=== PATIENT | female | born 1985 | race American Indian/Alaskan Native ===

== ENCOUNTER 2017-07-09 11:22 | Emergency (ER) | payer MEDICAID, OTHER ==
[2017-07-09 11:22] VITALS: BMI 35.4
[2017-07-09 11:40] VITALS: RESP 18; TEMP 98.8
[2017-07-09] MEDS ORDERED: Sodium Chloride 0.9% 1,000 ML IV STA (12:15)
[2017-07-09] MEDS ORDERED: Sodium Chloride 0.9% 1,000 ML ONE (13:09)
[2017-07-09 13:13] LABS: BASO % 0.1 % (0.0-2.0); EOS # 0.1 K/uL (0.0-0.7); HEMATOCRIT 35.4 % (34.0-47.0); LYMPH # 1.6 K/uL (1.0-4.3); LYMPH % 31.9 % (20.0-40.0); MEAN CELL VOLUME 89.9 fL (81.0-99.0); MEAN CORPUSCULAR HEMOGLOBIN 29.6 pg (27.0-31.0); MEAN CORPUSCULAR HGB CONC 32.9 g/dL (33.0-37.0); MEAN PLATELET VOLUME 10.5 fL (7.2-11.7); MONO # 0.3 K/uL (0.0-0.8); MONO % 6.4 % (0.0-10.0); RED CELL DISTRIBUTION WIDTH 12.8 % (11.5-14.5); WHITE BLOOD COUNT 5.2 K/uL (4.8-10.8)
[2017-07-09 13:15] LABS: CHLORIDE 100 mmol/L (98-107)
[2017-07-09 13:16] LABS: POTASSIUM 3.6 mmol/L (3.6-5.2); SODIUM 137 mmol/L (132-148)
[2017-07-09 13:18] LABS: ALKALINE PHOSPHATASE 57 U/L (38-126); ALT/SGPT 25 U/L (9-52); AST/SGOT 22 U/L (14-36); BILIRUBIN,TOTAL 0.7 mg/dL (0.2-1.3); BLOOD UREA NITROGEN 7 mg/dL (7-17); CARBON DIOXIDE 26 mmol/L (22-30); GFR AFRICAN-AMERICAN > 60; GLUCOSE,RANDOM 73 mg/dL (65-105); TOTAL PROTEIN 7.8 g/dL (6.3-8.3)
[2017-07-09 13:19] LABS: CALCIUM 9.1 mg/dl (8.6-10.4)
--- NOTE | 2017-07-09 13:39 | C.PDOC ---
History Of Present Illness 32 y/o female 7 weeks presents to ED with complaints of pelvic pain worse on left side and vaginal spotting since yesterday. Patient denies fever, chills, nausea, vomiting, dysuria or any other complaints at this time. Time Seen by Provider: 07/09/17 11:52 Chief Complaint (Nursing): Abdominal Pain History Per: Patient History/Exam Limitations: no limitations Onset/Duration Of Symptoms: Days Current Symptoms Are (Timing): Still Present Past Medical History Reviewed: Historical Data, Nursing Documentation, Vital Signs Vital Signs: Last Vital Signs Temp 98.8 F 07/09/17 11:38 Pulse 74 07/09/17 14:57 Resp 18 07/09/17 14:57 BP 102/64 07/09/17 14:57 Pulse Ox 100 07/09/17 16:01 - Medical History PMH: Asthma Family History: States: Unknown Family Hx - Social History Hx Alcohol Use: Yes Hx Substance Use: No - Immunization History Hx Tetanus Toxoid Vaccination: No Hx Influenza Vaccination: No Hx Pneumococcal Vaccination: No Review Of Systems Except As Marked, All Systems Reviewed And Found Negative. Constitutional: Negative for: Fever, Chills Gastrointestinal: Negative for: Nausea, Vomiting, Diarrhea Genitourinary: Positive for: Vaginal Bleeding, Pelvic Pain. Negative for: Dysuria, Frequency Musculoskeletal: Negative for: Back Pain Skin: Negative for: Rash Physical Exam - Physical Exam Appears: Non-toxic, No Acute Distress Skin: Normal Color, Warm, Dry, No Rash Head: Atraumatic, Normacephalic Eye(s): bilateral: Normal Inspection, EOMI Oral Mucosa: Moist Neck: Normal ROM, Supple Chest: Symmetrical Cardiovascular: Rhythm Regular Respiratory: Normal Breath Sounds, No Rales, No Rhonchi, No Wheezing Gastrointestinal/Abdominal: Soft, Tenderness (Mild to left suprapubic area), No Guarding, No Rebound Extremity: Normal ROM Neurological/Psych: Oriented x3 ED Course And Treatment - Laboratory Results Result Diagrams: 07/09/17 12:58 07/09/17 12:58 O2 Sat by Pulse Oximetry: 100 (RA) Pulse Ox Interpretation: Normal - CT Scan/US pelvic US Other Rad Studies (CT/US): Read By Radiologist, Radiology Report Reviewed CT/US Interpretation: Accession No. : [id number]. Patient Name / ID : TRAMAINE STOCK / [id number]. Exam Date : 07/09/2017 13:25:31 ( Approved ). Study Comment : Sex / Age : F / 32Y. Creator : NEW RAMSEY MD. Dictator : NEW RAMSEY MD. Interactive Media Marketing Director : Head Control Clerk : NEW RAMSEY MD. Approver2 : Report Date : 07/09/2017 14:08:25. My Comment : . PROCEDURE: OB Pelvic Ultrasound. HISTORY: left pelvic pain, spotting. COMPARISON: None available. FINDINGS: UTERUS: Single Live intrauterine gestation. CRL equivalent to 6 weeks 4 days gestatioin. Gestational sac diameter equivalent to 6 weeks 6 days gestation. age (Ultrasound estimated): 6 weeks 5 days. Date of delivery (Ultrasound estimated) : 2017. Heart rate: 124 bpm. Tracy-gestational hemorrhage: None. 3 mm yolk sac identified. Uterus measures 11.4 x 6.1 x 7.4 cm. No mass. CERVIX: Long and closed. No cervical abnormality seen. RIGHT OVARY: Not visualized. LEFT OVARY: Measures 4.1 x 2.8 x 3.4 cm. No mass. Normal flow. FREE FLUID: None. OTHER FINDINGS: None. IMPRESSION: Single live intrauterine gestation of approximately 6 weeks 5 days gestational age. heart rate 124 beats per minute. No subchorionic hemorrhage. Cervix closed. Progress Note: UA is consistant with UTI. Macrobid ordered. patient is stable to be d/c home with PMD and OBGYN follow up. Medical Decision Making Medical Decision Making: Plan: * labs * Pelvic US * IV fluids Disposition - Disposition Referrals: Olu Madden MD [Staff Provider] - Disposition: HOME/ ROUTINE Disposition Time: 15:59 Condition: STABLE Additional Instructions: Follow up with OBGYN within 1-2 days. Return to ED if feel worse. Prescriptions: Nitrofurantoin Macrocrystals [Macrobid] 1 cap PO BID #14 cap Instructions: Urinary Tract Infection in (ED) Forms: [facility] (Greenlandic) - Clinical Impression Clinical Impression: UTI (urinary tract infection), - Scribe Statement The provider has reviewed the documentation as recorded by the Scriblucio Portillo All medical record entries made by the Scribe were at my direction and personally dictated by me. I have reviewed the chart and agree that the record accurately reflects my personal performance of the history, physical exam, medical decision making, and the department course for this patient. I have also personally directed, reviewed, and agree with the discharge instructions and disposition.
--- NOTE | 2017-07-09 14:10 | US ---
PROCEDURE: OB Pelvic Ultrasound HISTORY: left pelvic pain, spotting COMPARISON: None available. FINDINGS: UTERUS: Single Live intrauterine gestation. CRL equivalent to 6 weeks 4 days gestatioin Gestational sac diameter equivalent to 6 weeks 6 days gestation age (Ultrasound estimated): 6 weeks 5 days Date of delivery (Ultrasound estimated) : 02/27/2018 Heart rate: 124 bpm. Tracy-gestational hemorrhage: None. 3 mm yolk sac identified. Uterus measures 11.4 x 6.1 x 7.4 cm. No mass CERVIX: Long and closed. No cervical abnormality seen. RIGHT OVARY: Not visualized LEFT OVARY: Measures 4.1 x 2.8 x 3.4 cm. No mass. Normal flow. FREE FLUID: None. OTHER FINDINGS: None. IMPRESSION: Single live intrauterine gestation of approximately 6 weeks 5 days gestational age. heart rate 124 beats per minute. No subchorionic hemorrhage. Cervix closed.
[2017-07-09 14:38] LABS: RBC URINE 4 /hpf (0-3); URINE BACTERIA RARE (<OCC); URINE BILIRUBIN NEGATIVE (NEGATIVE); URINE BLOOD NEGATIVE (NEGATIVE); URINE COLOR Amber (YELLOW); URINE GLUCOSE (UA) NORMAL (Normal); URINE KETONE NEGATIVE (NEGATIVE); URINE LEUKOCYTE ESTERASE 2+ Leu/uL (Negative); URINE PROTEIN NEGATIVE (NEGATIVE); WBC URINE 19 /hpf (0-5)
[2017-07-09 14:57] VITALS: BP 102/64; PULSE 74
[2017-07-09 16:01] VITALS: O2SAT 100
== END 2017-07-09 16:05 | disposition home or self-care (01) ==
LOC: C.ER 11:22
DX: O23.41 Unspecified infection of urinary tract in pregnancy, first trimester (principal); Z3A.01 Less than 8 weeks gestation of pregnancy
CPT/HCPCS: 76805; 76817; 80053; 81001; 84702; 85025; 86850; 86900; 96360; 99285; J7040

== ENCOUNTER 2017-08-06 12:13 | Emergency (ER) | payer MEDICAID, OTHER ==
[2017-08-06 12:13] VITALS: BMI 35.4
[2017-08-06 12:27] VITALS: BP 113/71; PULSE 81; RESP 20; TEMP 98.7; O2SAT 98
--- NOTE | 2017-08-06 13:04 | C.PDOC ---
History Of Present Illness 32 y/o female who is currently 10-11 weeks presents to the ED for evaluation of shortness of breath and sweating which began earlier today. Patient states she is an [employer] employee and was working in a hot environment. Patient states her symptoms resolved after 5 minutes. Patient also has history of eczema reports an itchy rash around mouth and upper labial region. Patient denies fever, chills, chest pain, cough, dysuria, vaginal bleeding, abdominal pain. Patient is . Time Seen by Provider: 08/06/17 12:40 Chief Complaint (Nursing): Shortness Of Breath History Per: Patient History/Exam Limitations: no limitations Onset/Duration Of Symptoms: Mins Current Symptoms Are (Timing): Better Quality: denies: "Pain" Current Respiratory Medications: See Home Med List Associated Symptoms: denies: Fever, Chest Pain, Bloody Cough, Productive Cough Additional History Per: Patient Past Medical History Reviewed: Historical Data, Nursing Documentation, Vital Signs Vital Signs: Last Vital Signs Temp 98.7 F 08/06/17 12:27 Pulse 81 08/06/17 12:27 Resp 20 08/06/17 12:27 BP 113/71 08/06/17 12:27 Pulse Ox 98 08/06/17 15:36 - Medical History PMH: Asthma Surgical History: No Surg Hx Family History: States: Unknown Family Hx - Social History Hx Alcohol Use: Yes Hx Substance Use: No - Immunization History Hx Tetanus Toxoid Vaccination: No Hx Influenza Vaccination: No Hx Pneumococcal Vaccination: No Review Of Systems Constitutional: Positive for: Sweats. Negative for: Fever, Chills Cardiovascular: Positive for: Other (+chest tightness ). Negative for: Chest Pain Respiratory: Positive for: Shortness of Breath. Negative for: Cough Genitourinary: Negative for: Dysuria, Vaginal Bleeding Skin: Positive for: Rash (itchy, around mouth and upper labial region ) Physical Exam - Physical Exam Appears: Non-toxic, No Acute Distress Skin: Normal Color, Warm, Dry Head: Atraumatic, Normacephalic Eye(s): bilateral: Normal Inspection Oral Mucosa: Moist Lips: Other (+dry, scaly, nonerythematous rash around lips ) Neck: Supple Chest: Symmetrical, No Deformity, No Tenderness Cardiovascular: Rhythm Regular, No Murmur Respiratory: Normal Breath Sounds, No Rales, No Rhonchi, No Wheezing, Other ( speaking full sentences ) Gastrointestinal/Abdominal: Soft, No Tenderness, No Guarding, No Rebound Back: Normal Inspection, No Vertebral Tenderness Pelvic: No Vaginal Discharge, Other (+dry, scaly nonerythematous rash to superior aspect of labia with eczematous appearance. no vulvar erythema ) Extremity: Normal ROM, Capillary Refill (less than 2 seconds ) Neurological/Psych: Normal Speech, Normal Cognition Gait: Steady ED Course And Treatment O2 Sat by Pulse Oximetry: 98 (on RA) Pulse Ox Interpretation: Normal Progress Note: On reassessment, pt is resting comfortably, showing no signs of distress and reports an improvement in her symptoms. Patient is stable for discharge and is advised to follow up with her PMD within 1-2 days for further evaluation. Disposition Counseled Patient/Family Regarding: Studies Performed, Diagnosis, Need For Followup, Rx Given - Disposition Referrals: [facility] [Outside] Disposition: HOME/ ROUTINE Disposition Time: 13:05 Condition: STABLE Additional Instructions: FOLLOW UP WITH YOUR DOCTOR/CLINIC IN 1-2 DAYS USE MEDICATION DIRECTED RETURN TO ER IMMEDIATELY IF YOUR SYMPTOMS RETURN/WORSEN Prescriptions: Colloidal Oatmeal [Eczema] 140 gm TP TID #1 lotion Instructions: Eczema in Children (ED) Forms: [facility] (South Korean), General Discharge Instructions Print Language: BANGLADESHI - POA Present On Arrival: None - Clinical Impression Clinical Impression: Eczema - Scribe Statement The provider has reviewed the documentation as recorded by the Scribe (Shelley Arellano) Provider Attestation: All medical record entries made by the Scribe were at my direction and personally dictated by me. I have reviewed the chart and agree that the record accurately reflects my personal performance of the history, physical exam, medical decision making, and the department course for this patient. I have also personally directed, reviewed, and agree with the discharge instructions and disposition.
== END 2017-08-06 13:26 | disposition home or self-care (01) ==
LOC: C.ER 12:13
DX: L30.9 Dermatitis, unspecified (principal)